=== PATIENT | female | born 1960 | race Caucasian/White ===

== ENCOUNTER 2025-03-18 00:03 | Day surgery (SDC) | payer OTHER, SELFPAY ==
[2025-03-10 11:47] VITALS: BMI 30.7
[2025-03-18 06:50] VITALS: BP 138/70; PULSE 114; RESP 16; TEMP 36.8; O2SAT 100; BMI 30.2
[2025-03-18] MEDS: LACTATED RINGERS 1,000 ML 150 ML IV CONT (06:58)
[2025-03-18] MEDS: VANCOMYCIN 1,250 MG/NS 250 ML BAG 166.67 MG IVPB (07:07)
--- NOTE | 2025-03-18 07:25 | WPDANESEPPF ---
Anes - Initial Pre Proc Eval Procedure: Operation Date: 03/18/25 08:00 Proposed Procedures p EGD & Screening Colonoscopy - Josue Camarena MD Date/Time: 03/18/25 07:25 Surgeon: Josue Camarena MD Pre Op Diagnosis: dysphagia/screening/hx of colon polyps in past Patient Data Age: 64 Gender: F Height: 1.68 m Weight: 84.8 kg Last Vital Signs Temp 98.3 F 03/18/25 06:50 Pulse 114 H 03/18/25 06:50 Resp 16 03/18/25 06:50 BP 138/70 03/18/25 06:50 Pulse Ox 100 03/18/25 06:50 O2 Del Method Room Air 03/18/25 06:50 Allergies Allergy/AdvReac Type Severity Reaction Status Date / Time Cephalosporins Allergy Mild RASH Verified 03/18/25 06:48 Home Medications ?Medication ?Instructions ?Recorded ?Confirmed ?Type aspirin 81 mg tablet 81 mg PO DAILY 10/30/24 03/18/25 History atorvastatin 40 mg tablet (Lipitor) 40 mg PO DAILY 10/30/24 03/18/25 History levothyroxine 112 mcg capsule 112 mcg PO DAILY 10/30/24 03/18/25 History cetirizine 10 mg tablet (24Hour 10 mg PO DAILY PRN allergy symptoms 03/10/25 03/18/25 History Allergy) docusate calcium 240 mg capsule 240 mg PO BID 03/10/25 03/10/25 History (Stool Softener (docusate calcium)) famotidine 20 mg tablet (Acid 20 mg PO DAILY 03/10/25 03/18/25 History Controller) Patient hx anesthesia problems: none Family hx anesthesia problems: none Results Review: All pre-operative results and documents have been reviewed as part of the pre-operative evaluation. [facility] Past Medical History Medical History Non-Hodgkin lymphoma Hypothyroid Cholecystectomy planned Aortic stenosis, moderate Colon cancer screening Hyperthyroidism Allergic rhinitis Renal insufficiency Surgical History Surgical History H/O dilation and curettage History of heart surgery Family History Family History Unknown Heart disease Hypertension Arthritis Cancer Diabetes mellitus Cerebrovascular accident Social History Social History Smoking status: Never smoker Alcohol intake: never Substance use: never Anes - Eval Final PreProcedure Day of Procedure 03/18/25 07:25 Patient weight: obese Lungs: normal air movement Airway: Mallampati scale class II and special considerations (Lower partial. ) Neurological: alert and oriented Last oral intake: >/= 8 hours ASA classification: III Emergent: no Anesthetic plan: proceed Anesthesia type and monitoring: general GIVS and standard monitoring Results Review: All pre-operative results and documents have been reviewed as part of the pre-operative evaluation. S/P AVR 2023, now off eliquis, HTN, hyperlipidemia, hx Hodgkins, breast ca. F/u ECHO w nml functioning aortic valve, cath nonobstructive CAD. Pt without cp or sob. Pt for EGD for dysphagia. Informed Consent: The patient's anesthetic plan and its attendant risks and benefits were discussed with the patient/family/POA. Questions were solicited and answers provided to the satisfaction of the patient/family/POA.
--- NOTE | 2025-03-18 08:12 | PM.HPGS ---
History of Present Illness History of Present Illness Consent: Risks, benefits, and alternatives have been discussed and questions answered. Patient agrees to proceed with procedure. Chief complaint: dysphagia/screening/hx of colon polyps in past Narrative: Tennille Sadler is a 64 year old female here with gerd and dysphagia, also due to have another screening colonoscopy- last one 2013 Review of Systems Review of Systems: All systems reviewed & are unremarkable except as noted in HPI and below PMFSH Past Medical History Medical History (Updated 03/18/25 @ 08:12 by Josue Camarena MD) Non-Hodgkin lymphoma Hypothyroid Cholecystectomy planned Aortic stenosis, moderate Colon cancer screening Hyperthyroidism Allergic rhinitis Renal insufficiency Surgical History Surgical History H/O dilation and curettage History of heart surgery Family History Family History Unknown Heart disease Hypertension Arthritis Cancer Diabetes mellitus Cerebrovascular accident Social History Social History Smoking status: Never smoker Alcohol intake: never Substance use: never Meds Home Medications and Allergies Home Medications ?Medication ?Instructions ?Recorded ?Confirmed ?Type aspirin 81 mg tablet 81 mg PO DAILY 10/30/24 03/18/25 History atorvastatin 40 mg tablet (Lipitor) 40 mg PO DAILY 10/30/24 03/18/25 History levothyroxine 112 mcg capsule 112 mcg PO DAILY 10/30/24 03/18/25 History cetirizine 10 mg tablet (24Hour 10 mg PO DAILY PRN allergy symptoms 03/10/25 03/18/25 History Allergy) docusate calcium 240 mg capsule 240 mg PO BID 03/10/25 03/10/25 History (Stool Softener (docusate calcium)) famotidine 20 mg tablet (Acid 20 mg PO DAILY 03/10/25 03/18/25 History Controller) Allergies Allergy/AdvReac Type Severity Reaction Status Date / Time Cephalosporins Allergy Mild RASH Verified 03/18/25 06:48 Vital Signs Vital Signs - 24 hr 03/18/25 06:50 Temperature 98.3 F Pulse Rate 114 H Respiratory Rate 16 Blood Pressure 138/70 Pulse Oximetry 100 Oxygen Delivery Room Air Exam Const: General: comfortable and no acute distress HENMT: Face/Nose/Sinus: Normal nares present Eyes: General: appearance normal, both eyes and all related structures Neck: Neck: no JVD Resp: Auscultation: clear to auscultation bilaterally Cardio: Rate: regular rate Rhythm: regular rhythm GI: Inspection: non-distended GI Palp: Yes Soft to palpation Skin: General skin exam: normal color Extrem: General: normal to inspection Psych: Mental Status: mental status grossly normal Assessment and Plan Assessment and plan (1) Dysphagia: Code(s): R13.10 - Dysphagia, unspecified Status: Acute Assessment and Plan: egd (2) GERD (gastroesophageal reflux disease): Code(s): K21.9 - Gastro-esophageal reflux disease without esophagitis Status: Acute (3) Colon cancer screening: Code(s): Z12.11 - Encounter for screening for malignant neoplasm of colon Status: Acute Assessment and Plan: colonoscopy
--- NOTE | 2025-03-18 08:36 | S_PTH ---
PATIENT: Tennille Sadler LOC: [facility]#:[id number] AGE/SX: 64/F ROOM: RE03/18/[address]: Josue Camarena MD : 1960 BED: DIS: 03/18/2025 SPEC #: [id number] RECD: 03/18/25 10:15 STATUS: MIKEL LONGORIA #: [id number] EDINSON: 03/18/25 08:[address]: Josue Camarena DEPT: [facility] Surgical RECD BY: Paige Adler ENTERED: 03/18/25 10:15 SP TYPE: Surgical OTHR DR: Prem TuckerMD Tissues: A - Gastric Biopsy B - Colon Polypectomy C - Colon Polypectomy D - Colon Polypectomy Procedures: Hematoxylin and Eosin Stain Gross and Microscopic Level 4
--- NOTE | 2025-03-18 08:39 | SUR.OPER ---
EGD ended at 832, Colon began at 08
[2025-03-18 08:54] VITALS: BP 119/79; PULSE 93; RESP 17; O2SAT 100
[2025-03-18 09:04] VITALS: BP 130/71; PULSE 86; RESP 16; O2SAT 100
[2025-03-18 09:14] VITALS: BP 142/63; PULSE 83; RESP 15; O2SAT 100
== END 2025-03-18 09:24 | disposition home or self-care (01) ==
PROVIDERS: PCP Family Medicine; Referring Provider Family Medicine; Visit Provider Internal Medicine Gastroenterology
PROC: 0DJ08ZZ Inspection of Upper Intestinal Tract, Via Natural or Artificial Opening Endoscopic (ICD-10-PCS; CPT 45378; principal; 2025-03-18 08:00)
DX: Z12.11 Encounter for screening for malignant neoplasm of colon (principal); D12.2 Benign neoplasm of ascending colon; K63.89 Other specified diseases of intestine; K64.8 Other hemorrhoids; K64.4 Residual hemorrhoidal skin tags; K21.00 Gastro-esophageal reflux disease with esophagitis, without bleeding; K22.2 Esophageal obstruction; K44.9 Diaphragmatic hernia without obstruction or gangrene
CPT/HCPCS: 45385; 45380; 43249; 43239; 88305; C1726; J2003; J2704; J3373; J7120